=== PATIENT | female | born 1960 | race Caucasian/White ===

== ENCOUNTER → 2021-02-20 13:13 | Outpatient (BNVA) | payer MEDICARE, SELFPAY | PROVIDERS: PCP Internal Medicine; Visit Provider Internal Medicine | DX: M51.36 Other intervertebral disc degeneration, lumbar region (principal); M50.30 Other cervical disc degeneration, unspecified cervical region | CPT/HCPCS: 99202 ==

== ENCOUNTER 2021-03-02 10:21 | Outpatient (REF) | payer MEDICARE, SELFPAY ==
--- NOTE | ~2021-03-02 | MR_ITS ---
MR CERVICAL SPINE AND LUMBAR SPINE WITHOUT CONTRAST CLINICAL INFORMATION: Cervical hardware. Lumbar intervertebral disc degeneration. COMPARISON: Cervical spine MRI 02/16/2016 and lumbar spine MRI 12/24/2013. TECHNIQUE: Multiplanar multisequence MR imaging of the cervical spine obtained without IV contrast. FINDINGS: CERVICAL SPINE MRI: Straightening of the cervical lordosis. ACDF changes at the C5-C7 levels. Vertebral body heights are maintained. There is mild to moderate disc volume loss at C3-C4. Remaining on surgical disc volumes are preserved. There is no bone marrow edema. There are no acute fractures. Probable intraosseous hemangioma within the partially imaged left C5 pedicle unchanged. Cervical arterial flow voids are maintained. There are no significant extraspinal soft tissue findings. There is no cord signal abnormality. Chronic microangiopathy within the central bianca. C2-C3: Disc contour is normal. Left facet arthropathy. No central canal stenosis and no foraminal stenosis. C3-C4: Disc osteophyte mildly narrows the central canal. Advanced uncovertebral joint hypertrophy and hypertrophic facet arthropathy result in severe right and mild to moderate left foraminal stenosis that is progressed. C4-C5: Disc osteophyte mildly narrows the central canal. Advanced uncovertebral joint hypertrophy and hypertrophic facet arthropathy result in worsening severe right-sided foraminal stenosis. C5-C6: ACDF changes. Osteophytic ridging results in moderate to severe bilateral foraminal stenosis. No central canal stenosis. C6-C7: ACDF changes. Osteophytic ridging results in [id number]-[id number] left foraminal stenosis. No central canal and no right foraminal stenosis. C7-T1: Disc contour is normal. Advanced right-sided facet arthropathy resulting in [id number] right-sided foraminal stenosis. LUMBAR SPINE MRI: There are 5 nonrib-bearing lumbar-type vertebral bodies. Straightening of the lumbar lordosis. Vertebral body heights are maintained. There is moderate disc volume loss at L2-L3, L4-L5, and L5-S1. Disc desiccation at all lumbar levels. Modic type I endplate signal changes at L1-L2 and L2-L3. There is no additional bone marrow edema. There are no acute fractures. Conus terminates at the L1 level. Multilevel endplate osteophytes. Partially imaged cyst within the liver. L1-L2: Diffuse annular disc bulge and mild bilateral facet arthropathy. No central canal stenosis and no significant foraminal stenosis. L2-L3: There is a diffuse annular disc bulge is in part disc osteophyte and there is mild bilateral facet arthropathy. There is no central canal stenosis. A left lateral disc osteophyte protrusion and facet arthropathy results in moderate left-sided foraminal stenosis and mass effect on the exiting left L2 nerve root that has progressed. L3-L4: Diffuse annular disc bulge and severe bilateral facet arthropathy and ligamentum flavum thickening. Findings in concert result in worsening moderate central canal stenosis and worsening bilateral subarticular zone stenosis with compression of the traversing L4 nerve roots bilaterally. Mild bilateral foraminal encroachment. L4-L5: Right hemilaminectomy and microdiscectomy changes. Diffuse disc osteophyte complex and moderate bilateral facet arthropathy. There is no central canal stenosis. Right lateral disc osteophyte and facet arthropathy result in similar moderate right-sided foraminal stenosis with mild mass effect on the exiting right L4 nerve root. L5-S1: There is a disc osteophyte complex eccentric to the left side that results in posterior deflection of the traversing left S1 nerve root in the left subarticular zone. Disc osteophyte and facet arthropathy results in similar severe left and moderate right foraminal stenosis with mass effect on the exiting left greater than right L5 nerve roots. Findings are unchanged. MR/MR cervical spine wo con IMPRESSION: - There are postoperative changes following ACDF at the C5-C7 levels. Progressive spondylitic changes resulting in worsening severe right foraminal stenosis at the C3-C4 and C4-C5 levels. There is also moderate to severe bilateral C5-C6 foraminal stenosis. No severe central canal stenosis within the cervical spine. - At L2-L3, a left lateral disc osteophyte protrusion has progressed resulting in worsening moderate left foraminal stenosis and mass effect on the exiting left nerve root. There are Modic type I endplate signal changes at this level. - At L3-L4, progressive spondylitic changes result in worsening moderate central canal stenosis and worsening bilateral subarticular zone stenosis with compression of the traversing L4 nerve roots bilaterally. Mild bilateral foraminal encroachment. - At L4-L5, there are chronic right hemilaminectomy and microdiscectomy changes. Spondylitic changes at L4-L5 result in similar moderate right-sided foraminal stenosis with mild mass effect on the exiting right L4 nerve root. - At L5-S1, similar spondylitic changes result in left subarticular zone stenosis with posterior deflection of the traversing left S1 nerve root as well as similar severe left and moderate right foraminal stenosis with mass effect on the exiting left greater than right L5 nerve roots. Findings are unchanged.
== END 2021-03-02 10:22 | disposition home or self-care (01) ==
LOC: HO.MRI 10:21
PROVIDERS: Visit Provider Internal Medicine
DX: M51.36 Other intervertebral disc degeneration, lumbar region (principal); M50.30 Other cervical disc degeneration, unspecified cervical region
CPT/HCPCS: 72141; 72148

== ENCOUNTER → 2021-03-13 12:49 | Outpatient (BNVA) | payer MEDICARE, SELFPAY | PROVIDERS: PCP Internal Medicine; Visit Provider Internal Medicine | DX: M50.30 Other cervical disc degeneration, unspecified cervical region (principal); M47.817 Spondylosis without myelopathy or radiculopathy, lumbosacral region; M96.1 Postlaminectomy syndrome, not elsewhere classified; M48.061 Spinal stenosis, lumbar region without neurogenic claudication; J44.9 Chronic obstructive pulmonary disease, unspecified; F41.8 Other specified anxiety disorders; F17.210 Nicotine dependence, cigarettes, uncomplicated; Z88.6 Allergy status to analgesic agent; Z88.8 Allergy status to other drugs, medicaments and biological substances | CPT/HCPCS: 99212 ==

== ENCOUNTER 2021-03-22 05:48 | Outpatient (REF) | payer MEDICARE, SELFPAY ==
--- NOTE | ~2021-03-22 | FL_ITS ---
EXAMINATION: XR FLUOROSCOPY WITH IMAGES CLINICAL INFORMATION: Postlaminectomy syndrome. COMPARISON: None. TECHNIQUE: Fluoroscopy performed by Diana Mccracken. Fluoroscopy time: 0.4 minutes DAP: 3.02 Gycm2 Images: 3 FINDINGS: There are 2 right-sided needles positioned on the right and 2 needles on the left adjacent to the L4 and L5 pedicles with contrast opacifying the adjacent soft tissues. FL/FL guidance in treatment room IMPRESSION: 2 needles positioned adjacent to L4 and L5 pedicles with contrast opacifying the adjacent soft tissues.
== END 2021-03-22 05:49 | disposition home or self-care (01) ==
LOC: HO.RADIR 05:48
PROVIDERS: Visit Provider Internal Medicine
DX: M47.817 Spondylosis without myelopathy or radiculopathy, lumbosacral region (principal); M96.1 Postlaminectomy syndrome, not elsewhere classified
CPT/HCPCS: 64493; 64494; J1040; Q9967

== ENCOUNTER → 2021-03-31 10:41 | Outpatient (BNVA) | payer MEDICARE, SELFPAY | PROVIDERS: PCP Internal Medicine; Visit Provider Internal Medicine | DX: M48.061 Spinal stenosis, lumbar region without neurogenic claudication (principal); M47.817 Spondylosis without myelopathy or radiculopathy, lumbosacral region; M96.1 Postlaminectomy syndrome, not elsewhere classified | CPT/HCPCS: 99212 ==

== ENCOUNTER 2021-04-12 06:10 | Outpatient (REF) | payer MEDICARE, SELFPAY | END 2021-04-12 06:11 | disposition home or self-care (01) | LOC: HO.RADIR 06:10 | PROVIDERS: Visit Provider Internal Medicine | DX: Z13.89 Encounter for screening for other disorder (principal) ==

== ENCOUNTER → 2021-04-21 10:40 | Outpatient (BNVA) | payer MEDICARE, SELFPAY | PROVIDERS: PCP Internal Medicine; Visit Provider Internal Medicine ==

== ENCOUNTER 2021-06-28 05:47 | Outpatient (REF) | payer MEDICARE, SELFPAY ==
--- NOTE | ~2021-06-28 | FL_ITS ---
EXAMINATION: XR FLUOROSCOPY WITH IMAGES CLINICAL INFORMATION: Spinal stenosis lumbar region COMPARISON: March 22, 2021 TECHNIQUE: Fluoroscopy performed by Dr. lazarus Marie Fluoroscopy time: 0.4 minutes DAP: 0.769 Gycm2 Images: 4 FINDINGS: 4 C-arm images from the operating room performed. Vardaman are seen with contrast adjacent to the L4, L5, and bilateral S1 pedicles. FL/FL guidance in treatment room IMPRESSION: Spine injections as described.
== END 2021-06-28 05:48 | disposition home or self-care (01) ==
LOC: HO.RADIR 05:47
PROVIDERS: Visit Provider Internal Medicine
DX: M47.817 Spondylosis without myelopathy or radiculopathy, lumbosacral region (principal); M48.061 Spinal stenosis, lumbar region without neurogenic claudication; M51.36 Other intervertebral disc degeneration, lumbar region; M96.1 Postlaminectomy syndrome, not elsewhere classified; F41.8 Other specified anxiety disorders; Z79.899 Other long term (current) drug therapy
CPT/HCPCS: 64493; 64494; Q9967

== ENCOUNTER → 2021-06-30 09:03 | Outpatient (BNVA) | payer MEDICARE, SELFPAY | PROVIDERS: PCP Internal Medicine; Visit Provider Internal Medicine | DX: M96.1 Postlaminectomy syndrome, not elsewhere classified (principal); M47.817 Spondylosis without myelopathy or radiculopathy, lumbosacral region | CPT/HCPCS: Q3014 ==

== ENCOUNTER 2021-08-09 05:58 | Outpatient (REF) | payer MEDICARE, SELFPAY ==
--- NOTE | ~2021-08-09 | FL_ITS ---
EXAMINATION: XR FLUOROSCOPY WITH IMAGES CLINICAL INFORMATION: M48.061 - Spinal stenosis, lumbar region COMPARISON: MR lumbar spine 03/02/2021 TECHNIQUE: Fluoroscopy performed by Dr. Sumanth Craig. Fluoroscopy time: 0.5 minutes DAP: 2.92 Gycm2 Images: 3 FINDINGS: There are spinal needles/electrodes overlying the outer left L3, L4, and L5 neural foramen. There are variable degenerative changes spine with disc narrowing and vertebral spurring. FL/FL guidance in treatment room IMPRESSION: Fluoroscopy for pain management procedures.
== END 2021-08-09 05:59 | disposition home or self-care (01) ==
LOC: HO.RADIR 05:58
PROVIDERS: Visit Provider Internal Medicine
DX: M47.817 Spondylosis without myelopathy or radiculopathy, lumbosacral region (principal); M48.061 Spinal stenosis, lumbar region without neurogenic claudication; M96.1 Postlaminectomy syndrome, not elsewhere classified
CPT/HCPCS: 64635; 64636; Q9967

== ENCOUNTER 2021-08-23 06:06 | Outpatient (REF) | payer MEDICARE, SELFPAY ==
--- NOTE | ~2021-08-23 | FL_ITS ---
EXAMINATION: XR FLUOROSCOPY WITH IMAGES CLINICAL INFORMATION: Spinal stenosis. COMPARISON: None. TECHNIQUE: Fluoroscopy performed by Dr. Zee Marie Fluoroscopy time: 0.6 minutes DAP: 3.08 Gy-cm2 Images: 4 FINDINGS: Needle placements appear to be just lateral to the superior aspects left L4, L5 and S1 vertebral bodies. No contrast is seen injected. FL/FL guidance in treatment room IMPRESSION: Fluoroscopy and spot films provided for pain management procedure by Dr. Zee Marie. Please see her procedure report for full details.
== END 2021-08-23 06:07 | disposition home or self-care (01) ==
LOC: HO.RADIR 06:06
PROVIDERS: Visit Provider Internal Medicine
DX: M47.817 Spondylosis without myelopathy or radiculopathy, lumbosacral region (principal); M48.061 Spinal stenosis, lumbar region without neurogenic claudication; M51.36 Other intervertebral disc degeneration, lumbar region
CPT/HCPCS: 64635; 64636

== ENCOUNTER → 2021-09-22 09:43 | Outpatient (BNVA) | payer MEDICARE, SELFPAY | PROVIDERS: PCP Internal Medicine; Visit Provider Internal Medicine | DX: M53.3 Sacrococcygeal disorders, not elsewhere classified (principal) | CPT/HCPCS: 99212 ==

== ENCOUNTER 2021-11-15 06:01 | Outpatient (REF) | payer MEDICARE, SELFPAY ==
--- NOTE | ~2021-11-15 | FL_ITS ---
EXAMINATION: XR FLUOROSCOPY WITH IMAGES CLINICAL INFORMATION: M53.3 - Sacrococcygeal disorders, not elsewhere classified COMPARISON: MR lumbar spine 03/02/2021 TECHNIQUE: Fluoroscopy performed by Dr. Sumanth Craig. Fluoroscopy time: 0.6 minutes DAP: 0.995 Gycm2 Images: 4 FINDINGS: There is a spinal needle overlying the mid to lower left SI joint and a spinal needle overlying the mid to lower right SI joint. FL/FL guidance in treatment room IMPRESSION: Fluoroscopy for pain management procedure.
== END 2021-11-15 06:02 | disposition home or self-care (01) ==
LOC: HO.RADIR 06:01
PROVIDERS: Visit Provider Internal Medicine
DX: M53.3 Sacrococcygeal disorders, not elsewhere classified (principal)
CPT/HCPCS: 27096; J1040; J2795

== ENCOUNTER → 2021-12-15 09:37 | Outpatient (BNVA) | payer MEDICARE, SELFPAY | PROVIDERS: PCP Internal Medicine; Visit Provider Internal Medicine | DX: M53.3 Sacrococcygeal disorders, not elsewhere classified (principal); M47.817 Spondylosis without myelopathy or radiculopathy, lumbosacral region | CPT/HCPCS: 99212 ==

== ENCOUNTER 2022-08-09 14:38 | Outpatient (AMB) | payer MEDICARE, SELFPAY ==
--- NOTE | 2022-08-09 14:46 | A.OFFPC_ITS ---
Vital Signs 08/09/22 14:50 Height 5 ft 5 in Weight 132 lb BMI 21.9 BP 102/74 Blood Pressure Location Rt brachial Position Sitting Pulse 72 Pulse Source Pulse Oximeter Pulse Oximetry (%) 97 Oxygen Delivery Method Room Air Intake Visit Reasons: REBOOK FROM 07/31/2022 Intake Note: Pt is here today to discuss whining off the paroxetine she was on Allergies No Known Allergies (No Known Allergies*) Allergy (Verified 11/11/24 14:10) Medication List - Last Reviewed 08/09/22 by Letty Love CMA acetaminophen 1,000 mg PO Q6H PRN albuterol sulfate 90 mcg/actuation (ProAir HFA) 2 puffs inhalation Q6H PRN paroxetine HCl 20 mg PO DAILY Tobacco use date assessed: 08/09/22 [facility] Medical History Heartburn Sacroiliac joint pain Postherpetic neuralgia Hx of herpes zoster Spinal stenosis of lumbar region Post laminectomy syndrome Lumbar and sacral spondyloarthritis Depression with anxiety Encounter for screening for malignant neoplasm of lung Degenerative disc disease, cervical Degenerative disc disease, lumbar Smoker unmotivated to quit COPD (chronic obstructive pulmonary disease) Surgical History Hx of cervical discectomy Hx of lumbar discectomy Social History Housing: House Patient Tobacco Use Status: Current everyday Tobacco user Cigarette Packs Per Day: 0 Cigarettes Per Day: 6 e-Cigarette/Vaping Use: Never Used Current occupational status: unemployed Cognitive needs: No Hearing needs: No Vision needs: Yes Questionnaire PHQ-9 Over the last 2 weeks, how often have you been bothered by any of the following problems? 05027 - PHQ-9 Billing: Patient declined-do not bill Source: Developed by Drs. Jorge Nevarez, Teresita Greenberg, Nirav Roth and colleagues, with an educational felicia from [employer] Thrive Questionnaire Declines Thrive assessment: Yes Date Thrive assessed: 08/09/22 AUDIT C Alcohol Use Questionnaire (AUDIT-C) 1. How often do you have a drink containing alcohol?: Monthly or less 2. How many drinks containing alcohol do you have on a typical day when you are drinking?: 1 or 2 3. How often do you have six or more drinks on one occasion?: Never Total Score: 1 MARTHA-7 AMB Questionnaire MARTHA-7 Date MARTHA - 7 assessed: 08/09/22 Source: Developed by Drs. Jorge Nevarez, Teresita Greenberg, Nirav Roth and colleagues, with an educational felicia from [employer] MARTHA-7 Assessment Billing MARTHA-7 Assessment Tool: pt declined-do not bill Physical exam (Primary Care) Vital Signs: Last Vital Signs Pulse 72 08/09/22 14:50 BP 102/74 08/09/22 14:50 Pulse Ox 97 08/09/22 14:50 Oxygen Delivery Method Room Air 08/09/22 14:50 BMI result Body Mass Index 21.9 Tobacco/Smoking Status: Tobacco use Status Tobacco use date assessed 08/09/22 08/09/22 14:56 Patient Tobacco Use Status Current everyday Tobacco 08/09/22 14:47 e-Cigarette/Vaping Use Never Used 08/09/22 14:47 Thrive Assessment: Date of Thrive Assessment Date Thrive assessed 08/09/22 08/09/22 14:56 Coding Level of Care Code Admin Sign Off/No Billing Diagnoses Depression with anxiety F41.8
[2022-08-09 14:50] VITALS: BP 102/74; PULSE 72; O2SAT 97; BMI 21.9
== END 2022-08-09 16:03 | disposition home or self-care (01) ==
LOC: HO.HMGC 14:38
PROVIDERS: PCP Internal Medicine; Visit Provider Internal Medicine
DX: F41.8 Other specified anxiety disorders (principal)
CPT/HCPCS: 99499

== ENCOUNTER 2024-05-08 08:10 | Outpatient (AMB) | payer MEDICARE, SELFPAY ==
--- NOTE | 2024-05-08 08:06 | A.OFFPC_ITS ---
Intake Visit Reasons: need refills paroxitine/[id number] Allergies No Known Allergies [No Known Allergies*] Allergy (Verified 05/08/24 08:42) Medication List - Last Reconciled 05/08/24 by Kami Ahn MD ibuprofen 600 mg PO Q8H PRN paroxetine HCl 30 mg PO DAILY Tobacco use date assessed: 05/08/24 Fall risk assessment: No Falls in past year Last assessed Fall Risk: 05/08/24 Dental Screening Dental Screen Date: 05/08/24 Did you have a dental visit in the last 12 months?: Yes Did you have a dental problem in the last 6 months where you did not have access to dental care?: No Was dental information given to patient?: Patient has dentist HPI need refills paroxitine/[id number] HPI Details 64-year-old lady with depression and anx iety, here today for follow-up. She has been taking paroxetine 30 mg once a day, needs a refill. Patient however states that she has been having more frequent anxiety attacks despite taking paroxetine. Does not want to see a therapist. She has COPD, continues to smoke however with no desire to quit at present time. Patient states that she is not on any medications at present time for her COPD, ran out of her medications. Complains of recurrent productive cough and shortness of breath on moderate exertion. [facility] Medical History Heartburn Sacroiliac joint pain Postherpetic neuralgia Hx of herpes zoster Spinal stenosis of lumbar region Post laminectomy syndrome Lumbar and sacral spondyloarthritis Depression with anxiety Encounter for screening for malignant neoplasm of lung Degenerative disc disease, cervical Degenerative disc disease, lumbar Smoker unmotivated to quit COPD (chronic obstructive pulmonary disease) Surgical History Hx of cervical discectomy Hx of lumbar discectomy Social History Housing: House Patient Tobacco Use Status: Current everyday Tobacco user Cigarette Packs Per Day: 0 Cigarettes Per Day: 6 e-Cigarette/Vaping Use: Never Used Current occupational status: unemployed Cognitive needs: No Hearing needs: No Vision needs: Yes Questionnaire PHQ-9 Over the last 2 weeks, how often have you been bothered by any of the following problems? 1. Little interest or pleasure in doing things: several days 2. Feeling down, depressed, or hopeless: several days 3. Trouble falling or staying asleep, or sleeping too much: several days 4. Feeling tired or having little energy: several days 5. Poor appetite or overeating: several days 6. Feeling bad about yourself - or that you are a failure or have let yourself or your family down: several days 7. Trouble concentrating on things, such as reading the newspaper or watching television: not at all 8. Moving or speaking so slowly that other people could have noticed. Or the opposite - being so fidgety or restless that you have been moving around a lot more than usual: not at all 9. Thoughts that you would be better off or of hurting yourself in some way: not at all Total score: 6 Depression Screening Interpretation: Positive (Started on buspirone 5 mg 1 tablet 3 times a day and continued on paroxetine) Depression Screening Follow- up: Existing condition, In treatment and New Medication prescribed Depression Screening Done: Yes Source: Developed by Drs. Jorge Nevarez, Teresita Greenberg, Nirav Roth and colleagues, with an educational felicia from [employer]. Thrive Questionnaire Date Thrive assessed: 05/08/24 I am a: Patient What is your living situation today?: I have a steady place to live Within the past 12 months, did the food you bought not last and you didn't have the money to get more?: Never true Within the past 12 months, did you worry whether your food would run out before you got money to buy more?: Never true Do you have trouble paying for medicines?: No Do you have trouble getting transportation to medical appointments?: No Do you have trouble paying your heating and electricity bill?: No Do you have trouble taking care of your child, family member or friend?: No Do you have trouble with day-to-day activities such as bathing, preparing meals, shopping, managing finances, etc.?: No Are you currently unemployed and looking for a job?: No Are you interested in more education?: No THRIVE Score: 0 AUDIT C Alcohol Use Questionnaire (AUDIT-C) 1. How often do you have a drink containing alcohol?: Monthly or less 2. How many drinks containing alcohol do you have on a typical day when you are drinking?: 1 or 2 3. How often do you have six or more drinks on one occasion?: Never Total Score: 1 MARTHA-7 AMB Questionnaire MARTHA-7 Date MARTHA - 7 assessed: 05/08/24 Feeling nervous, anxious, or on edge: 1 = Several days Not being able to stop or control worryin = Several days Worrying too much about different things: 1 = Several days Trouble relaxin = Several days Being so restless that it is hard to sit still: 0 = Not at all Becoming easily annoyed or irritable: 0 = Not at all Feeling afraid as if something awful might happen: 0 = Not at all Total MARTHA-7 score (0-4 normal; 5-9 mild; 10-14 moderate; 15-21 severe): 4 Source: Developed by Drs. Jorge Nevarez, Teresita Greenberg, Nirav Roth and colleagues, with an educational felicia from [employer]. MARTHA-7 Assessment Billing MARTHA-7 Assessment Tool: MARTHA-7 Assessment 74490 Review of Systems Const Reports as per HPI, Reports body aches, Reports fatigue, Denies headache(s) and Denies weakness ENT Reports no additional complaints and Denies headache(s) Card Denies rapid heart rate, Denies irregular heart rhythm and Denies lightheadedness Resp Reports as per HPI and Reports wheezing GI Reports no additional complaints and Denies heartburn (Controlled with taking pantoprazole) Neuro Denies headache(s) and Denies weakness Psych Reports as per HPI Endo Reports fatigue Aller/Immun Reports wheezing Physical exam (Primary Care) Tobacco/Smoking Status: Tobacco use Status Tobacco use date assessed 05/08/24 05/08/24 08:08 Patient Tobacco Use Status Current everyday Tobacco 05/08/24 08:08 e-Cigarette/Vaping Use Never Used 05/08/24 08:08 PHQ-9: PHQ-9 Score PHQ-9: Total score 3 05/08/24 09:36 Depression Screening Interpretation: Positive (Started on buspirone 5 mg 1 tab let 3 times a day and continued on paroxetine) Depression Screening Follow-up: Existing condition, In treatment and New Medication prescribed Thrive Assessment: Date of Thrive Assessment Date Thrive assessed 05/08/24 05/08/24 08:09 Telehealth Telehealth Telehealth Platform: [employer] Location of provider rendering services: practice address Location of patient: address on file Patient Identification confirmed using: Name, : Yes Telehealth method: video Patient verbally consented to treatment: Yes Patient verbally consented to billing insurance company: Yes Patient informed of any privacy concerns related to visit: Yes Minutes spent on Phone/Video with Pt.: 20 Coding Level of Care Code Tele Est Pt Level 4 (32478) Complex EM visit Add On G2211 Diagnoses Depression with anxiety F41.8 COPD (chronic obstructive pulmonary disease) J44.9 Smoker unmotivated to quit F17.200 Additional Codes MARTHA-7 Assessment Billing - MARTHA-7 Assessment Tool: MARTHA-7 Assessment 02026 ([id number]) Assessment & Plan Assessment & Plan (1) Depression with anxiety: Code(s): F41.8 - Other specified anxiety disorders Category: Medical Plan: Continued on paroxetine 30 mg daily and added buspirone 5 mg to take 1 tablet twice a day. Declines referral for counseling. Will see her back for follow-up in 4 weeks (2) COPD (chronic obstructive pulmonary disease): Code(s): J44.9 - Chronic obstructive pulmonary disease, unspecified Category: Medical Plan: Started on Breztri Aerosphere, 2 inhalations twice a day, gargle mouth after use. Strongly encouraged to quit smoking. Will see her for follow-up again in 4 weeks (3) Smoker unmotivated to quit: Code(s): F17.200 - Nicotine dependence, unspecified, uncomplicated Category: Social Hx Plan: Patient strongly advised to stop smoking, as smoking damages blood vessels, degenerative of joints and spine, damage to lungs and heart., predisposes to developing certain cancers like lung, breast, bladder, colon. Recommended to try decreasing cigarette use by 1-2 cigarettes a day. Advised to monitor what triggers are for smoking so that this can be discussed on the next office visit. We can discuss different options to quit smoking when ready. Medications: New Breztri Aerosphere 160-9-4.8 mcg/actuation (huhhvzcmus-vfzbfzzn-zozxtibogx) 2 inhalations inhalation BID 10.7 grams 1RF NS J44.9 - Chronic obstructive pulmonary disease, unspecified buspirone 5 mg PO BID 90 tabs 0RF Refilled paroxetine HCl 30 mg PO DAILY 90 tabs 1RF
== END 2024-05-08 09:37 | disposition home or self-care (01) ==
LOC: HO.HMCC 08:10
PROVIDERS: PCP Internal Medicine; Visit Provider Internal Medicine
DX: F41.8 Other specified anxiety disorders (principal); J44.9 Chronic obstructive pulmonary disease, unspecified; F17.200 Nicotine dependence, unspecified, uncomplicated

== ENCOUNTER → 2024-05-08 08:10 | Outpatient (BNVA) | payer MEDICARE, SELFPAY | PROVIDERS: PCP Internal Medicine; Visit Provider Internal Medicine | DX: F41.8 Other specified anxiety disorders (principal); J44.9 Chronic obstructive pulmonary disease, unspecified; F17.200 Nicotine dependence, unspecified, uncomplicated; Z71.6 Tobacco abuse counseling | CPT/HCPCS: 96127 ==

== ENCOUNTER 2024-11-11 13:42 | Outpatient (AMB) | payer MEDICARE, SELFPAY ==
--- NOTE | 2024-11-11 13:52 | A.OFFPC_ITS ---
<Statement entered by Kami Ahn MD - 11/21/24 02:13> This note has been administratively?closed. Vital Signs 11/11/24 14:03 Height 5 ft 5 in Weight 130 lb BMI 21.6 BP 146/72 H Blood Pressure Location Lt brachial Position Sitting Respiration 18 Pulse 75 Pulse Source Pulse Oximeter Temp 97.6 F Temp Source Oral Pulse Oximetry (%) 97 Oxygen Delivery Method Room Air Intake Visit Reasons: [facility] f/u abd pain Intake Note: Pt is here today for her [facility] f/u re: abd pain Allergies No Known Allergies [No Known Allergies*] Allergy (Verified 11/11/24 14:10) Tobacco use date assessed: 11/11/24 Fall risk assessment: No Falls in past year Last assessed Fall Risk: 11/11/24 Dental Screening Dental Screen Date: 11/11/24 REPLACED BY [facility] Medical History Heartburn Sacroiliac joint pain Postherpetic neuralgia Hx of herpes zoster Spinal stenosis of lumbar region Post laminectomy syndrome Lumbar and sacral spondyloarthritis Depression with anxiety Encounter for screening for malignant neoplasm of lung Degenerative disc disease, cervical Degenerative disc disease, lumbar Smoker unmotivated to quit COPD (chronic obstructive pulmonary disease) Surgical History Hx of cervical discectomy Hx of lumbar discectomy Social History Housing: House Patient Tobacco Use Status: Current everyday Tobacco user Cigarette Packs Per Day: 0 Cigarettes Per Day: 6 e-Cigarette/Vaping Use: Never Used Current occupational status: unemployed Cognitive needs: No Hearing needs: No Vision needs: Yes Questionnaire Thrive Questionnaire Date Thrive assessed: 05/08/24 MARTHA-7 AMB Questionnaire MARTHA-7 Date MARTHA - 7 assessed: 05/08/24 Source: Developed by Drs. Jorge Nevarez, Teresita Greenberg, Nirav Roth and colleagues, with an educational felicia from [employer]. Physical exam (Primary Care) Vital Signs: Last Vital Signs Temp 97.6 F 11/11/24 14:03 Pulse 75 11/11/24 14:03 Resp 18 11/11/24 14:03 BP 146/72 H 11/11/24 14:03 Pulse Ox 97 11/11/24 14:03 Oxygen Delivery Method Room Air 11/11/24 14:03 BMI result Body Mass Index 21.6 Tobacco/Smoking Status: Tobacco use Status Tobacco use date assessed 11/11/24 11/11/24 13:53 Patient Tobacco Use Status Current everyday Tobacco 11/11/24 13:53 e-Cigarette/Vaping Use Never Used 11/11/24 13:53 Thrive Assessment: Date of Thrive Assessment Date Thrive assessed 05/08/24 11/11/24 13:53 Coding Level of Care Code Est Pt Level 4 (33579) Diagnoses Acute left lower quadrant pain R10.32 Assessment & Plan Assessment & Plan (1) Acute left lower quadrant pain: Code(s): R10.32 - Left lower quadrant pain Plan: Likely acute diverticulitis, CT [facility] done at [facility] showed some thickening of colonic mucosa in the left side of colon. Empirically started on ciprofloxacin 500 mg to take 1 every 12 hours for 10 days, in addition to metronidazole 500 mg to take 1 tablet every 8 hours for 10 days. Advised to eat a bland diet, easy to digest. Plenty of fluids Rx for oxycodone was also sent 5 mg per tablet to take once a day as needed for severe pain. Five tablets with no refill If pain persists or worsens especially if accompanied by any blood in the stool, nausea or vomiting and fever, go to the ER for further evaluation may Medications: New ciprofloxacin HCl 500 mg PO Q12H 20 tabs 0RF metronidazole 500 mg PO Q8H 30 tabs 0RF 10 days oxycodone Partial Fill upon patient request. 5 mg PO BID PRN 5 tabs 0RF pain, severe
[2024-11-11 14:03] VITALS: BP 146/72; PULSE 75; RESP 18; TEMP 36.4; O2SAT 97; BMI 21.6
--- OUTSIDE RECORDS SUMMARY | 2024-11-11 14:18 | XMS_ITS | Clinical Summary ---
Author Organization [facility] Address [address] [place] [address] Phone Care Team Providers Care Patient Accounts Coordinator Name Role Phone Kami Ahn MD Primary Care Provider [phone] Allergies No known active allergies Medications PARoxetine (PAXIL) 30 mg tablet Take 1 tablet (30 mg total) by mouth 1 (one) time each day. 5 Active traMADoL (ULTRAM) 50 mg tabletIndicatio ns:Colitis Take 1 tablet (50 mg total) by mouth every 8 (eight) hours if needed for severe pain. Max Daily Amount: 150 mg 10 tablet 5 Active acetaminophen (TYLENOL) 500 mg tablet Take 2 tablets (1,000 mg total) by mouth every 8 (eight) hours if needed for mild pain or fever - temperature GREATER than 38 C (100.4 F) for up to 3 days. 20 tablet 5 11/04/19 25 Active Problems Problem Noted Date Diagnosed Date Intractable abdominal pain 10/30/2024 Osteoarthritis 07/16/2011 Overview (10/30/2024): Noted in [facility] joints in hands bilat, mild, Sep 2008, saw Dr Dixon, [facility] Depression 07/10/2011 Low back pain 07/10/2011 Encounters Date Type Department Care Team Description 10/30/2024 12:30 PM EDT - 10/31/2024 12:22 PM EDT Hospital Encounter [facility] Emergency [address] [place] [address] Kaylee Yeboah DO Durkin, Louis J, MD Flores, Carlos M, MD Santoyo-Pacheco , Caleb D, MD Left lower quadrant abdominal pain (Primary Dx); Colitis Discharge Disposition: Home or Self Care from Last 3 Months Surgical History Surgery Date Site/Laterality Comments BACK SURGERY PROCEDURE: HISTORICAL BACK SURGERY; COMMENT: lumbar disc herniation, Dr. Quiñones WRIST SURGERY PROCEDURE: HISTORICAL WRIST SURGERY; COMMENT: left wrist last year Medical History Medical History Date Comments Back pain DX:Back pain Family History Medical History Relation Name Comments Alcohol/Drug Father Heart attack Father Hypertension Father Alcohol/Drug Mother Alcohol/Drug Sister 1 Arthritis Sister 2 Relation Name Status Comments Brother Alive Father Alive alcoholic, Mother alcoholic, Sister 1 Sister 2 Sister 3 Alive Sister 4 Alive Sister 5 Social History Tobacco Use Types Packs/Day Years Used Date Smoking Tobacco: Every Day Cigarettes Smokeless Tobacco: Never Tobacco Cessation:Ready to Q uit: No; Counseling Given: Yes Alcohol Use Standard Drinks/Week Comments No 0 (1 standard drink = 0.6 oz pur e alcohol) Comments No Sex and Gender Information Value Date Recorded Sex Assigned at Female 10/30/2024 1:17 PM EDT Legal Sex Female 9:11 PM EST Gender Identity Female 10/30/2024 1:17 PM EDT Sexual Orientation Straight 10/30/2024 1: 17 PM EDT Obstetrics History Last Filed Vital Signs Vital Sign Reading Time Taken Comments Blood Pressure 129/67 10/31/2024 12:07 PM EDT Pulse 56 10/31/2024 12:07 PM EDT Temperature 37.4 ??C (99.4 ??F) 10/31/2024 12:07 PM E DT Respiratory Rate 13 10/31/2024 12:07 PM EDT Oxygen Saturation 95% 10/31/2024 12:07 PM EDT Inhaled Oxygen Concentration - - Weight 56.7 kg (125 lb) 10/30/2024 12:00 PM EDT Height 167.6 cm (5' 6 ) 10/30/2024 12:00 PM EDT Body Mass Index 20.18 10/30/2024 12:00 PM EDT Plan of Treatment Health Maintenance Due Date Last Done Comments Breast Cancer Screening 1960 Pneumococcal Vaccine: 50+ Years (2 of 2 - PCV) 05/29/2020 05/29/2019 Cholesterol Screening (Lipid Panel) 07/19/2023 Colorectal Cancer Screening: Colonoscopy 07/19/2023 Depression Screening 07/19/2023 Falls Risk Assessment 07/19/2023 Hepatitis C Screening 07/19/2023 Medicare Annual Wellness Visit 07/19/2023 Osteoporosis Screening (Bone Density Screening) 07/19/2023 Social Influencers of Health Screening 07/19/2023 Zoster Vaccines (2 of 2) 05/25/2024 03/30/2024 COVID-19 Vaccine ( season) 2024 03/13/2024, 03/15/2022, 05/09/2021, Additional history exists DTaP,Tdap,and Td Vaccines (2 - Td or Tdap) 02/02/2032 02/01/2022 Influenza Vaccine Completed 03/13/2024, , 04/10/2021, Additional history exists RSV Immunization Adult Patients Completed 03/13/2024 HIB Vaccines Aged Out No longer eligi ble based on patient's age to complete this topic HPV Vaccines Aged Out No longer eligi ble based on patient's age to complete this topic Hepatitis A Vaccines Aged Out No long er eligible based on patient's age to complete this topic Hepatitis B Vaccines Aged Out No long er eligible based on patient's age to complete this topic IPV Vaccines Aged Out No longer eligi ble based on patient's age to complete this topic MMR Vaccines Aged Out No longer eligi ble based on patient's age to complete this topic Meningococcal ACWY Vaccine Aged Out N o longer eligible based on patient's age to complete this topic Meningococcal B Vaccine Aged Out No l onger eligible based on patient's age to complete this topic RSV Immunization Patients Under 20 months Aged Out No longer eligible based on patient's age to complete this topic Varicella Vaccines Aged Out No longer eligible based on patient's age to complete this topic Procedures Procedure Name Priority Date/Time Associated Diagnosis Comments CBC WITH AUTO DIFFERENTIAL Routine 10/31/2024 5:19 AM EDT CBC AND DIFFERENTIAL Routine 10/31/2024 5:19 AM EDT MAGNESIUM Routine 10/31/2024 5:19 AM EDT BASIC METABOLIC PANEL Routine 10/31/2024 5:19 AM EDT DRUG ABUSE SCREEN 8A PANEL, URINE Routine 10/31/2024 12:56 AM EDT LACTATE STAT 10/30/2024 4:36 PM EDT US PELVIS NON OB COMPLETE W TRANSVAGINAL STAT 10/30/2024 3:[address] ABDOMEN PELVIS W CONTRAST STAT 10/30/2024 1:50 PM EDT LIU URINE CULTURE TUBE STAT 10/30/2024 12:10 PM EDT URINALYSIS WITH REFLEX MICROSCOPIC AND CULTURE STAT 10/30/2024 12:10 PM EDT URINALYSIS WITH REFLEX MICROSCOPIC AND CULTURE STAT 10/30/2024 12:10 PM EDT CBC WITH AUTO DIFFERENTIAL STAT 10/30/2024 12:06 PM EDT LIPASE STAT 10/30/2024 12:06 PM EDT COMPREHENSIVE METABOLIC PANEL STAT 10/30/2024 12:06 PM EDT CBC AND DIFFERENTIAL STAT 10/30/2024 12:06 PM EDT from Last 3 Months Results * (ABNORMAL) CBC auto differential (10/31/2024 5:19 AM EDT) Only the most recent of2 resultswithin the time period is included. WBC 5.9 4.8 - 10.8 K/mcL LAB HEMETOLOGY METHOD 10/31/2024 6:09 AM EDT [facility] RBC 3.90 3.80 - 4.80 M/mcL LAB HEMETOLOGY METHOD 10/31/2024 6:09 AM EDT [facility] Hemoglobin 12.6 11.5 - 16.0 g/dL LAB HEMETOLOGY METHOD 10/31/2024 6:09 AM [facility] Hematocrit 37.6 35.0 - 47.0 % LAB HEMETOLOGY METHOD 10/31/2024 6:09 AM [facility] MCV 96.7 79.0 - 98.0 FL LAB HEMETOLOGY METHOD 10/31/2024 6:09 AM [facility] MCH 32.4(H) 27.0 - 32.0 pcg LAB HEMETOLOGY METHOD 10/31/2024 6:09 AM [facility] MCHC 33.5 32.0 - 37.0 g/dL LAB HEMETOLOGY METHOD 10/31/2024 6:09 AM [facility] RDW 14.3 11.0 - 15.0 % LAB HEMETOLOGY METHOD 10/31/2024 6:09 AM [facility] Platelets 161 130 - 400 K/mcL LAB HEMETOLOGY METHOD 10/31/2024 6:09 AM [facility] MPV 10.4 7.0 - 11.0 FL LAB HEMETOLOGY METHOD 10/31/2024 6:09 AM [facility] NRBC 0.0 <1.0 % LAB HEMETOLOGY METHOD 10/31/2024 6:09 AM [facility] NRBC Absolute 0.00 <0.10 K/mcL LAB HEMETOLOGY METHOD 10/31/2024 6:09 AM [facility] Neutrophils Relative 49.8 % LAB HEMETOLOGY METHOD 10/31/2024 6:09 AM [facility] Lymphocytes Relative 38.0 % LAB HEMETOLOGY METHOD 10/31/2024 6:09 AM [facility] Monocytes Relative 7.4 % LAB HEMETOLOGY METHOD 10/31/2024 6:09 AM [facility] Eosinophils Relative 3.9 % LAB HEMETOLOGY METHOD 10/31/2024 6:09 AM EDT [facility] Basophils Relative 0.7 % LAB HEMETOLOGY METHOD [facility] Immature Granulocytes Relative 0.2 % LAB HEMETOLOGY METHOD 10/31/2024 6:09 AM EDT [facility] Neutrophils Absolute 2.95 1.50 - 7.00 K/mcL LAB HEMETOLOGY METHOD 10/31/2024 6:09 AM EDT [facility] Lymphocytes Absolute 2.25 1.00 - 5.00 K/mcL LAB HEMETOLOGY METHOD 10/31/2024 6:09 AM EDT [facility] Monocytes Absolute 0.44 0.20 - 1.00 K/mcL LAB HEMETOLOGY METHOD 10/31/2024 6:09 AM EDT [facility] Eosinophils Absolute 0.23 0.00 - 0.50 K/mcL LAB HEMETOLOGY METHOD 10/31/2024 6:09 AM EDT [facility] Basophils Absolute 0.04 0.00 - 0.20 K/mcL LAB HEMETOLOGY METHOD 10/31/2024 6:09 AM EDT [facility] Immature Granulocytes Absolute 0.01 0.00 - 0.03 K/mcL LAB HEMETOLOGY METHOD 10/31/2024 6:09 AM EDT [facility] Blood Venous blood specimen / Unknown Venipuncture / Unknown 10/31/2024 5:19 AM EDT 10/31/2024 5:43 AM EDT Paramjit Pina MD LAB BLOOD ORDERABLES Final Re sult [facility] [address] [place] [address], * Magnesium (10/31/2024 5:19 AM EDT) Magnesium 1.9 1.9 - 2.6 mg/dL LAB CHEMISTRY METHOD 10/31/2024 6:08 AM [facility] Blood Venous blood specimen / Unknown Venipuncture / Unknown 10/31/2024 5:19 AM EDT 10/31/2024 5:43 AM EDT us Mala Houston MARINE UNDERWRITER LAB BLOOD ORDERABLES Final Resu lt [facility] [address] [place] [address], * Basic metabolic panel (10/31/2024 5:19 AM EDT) Pathologist [facility] Sodium 139 133 - 145 mmol/L LAB CHEMISTRY METHOD 10/31/2024 6:08 AM [facility] Potassium 4.0 3.5 - 5.5 mmol/L LAB CHEMISTRY METHOD 10/31/2024 6:08 AM [facility] Chloride 109 96 - 110 mmol/L LAB CHEMISTRY METHOD 10/31/2024 6:08 AM [facility] CO2 26 21 - 32 mmol/L LAB CHEMISTRY METHOD 10/31/2024 6:08 AM [facility] Anion Gap 4 3 - 11 LAB CHEMISTRY METHOD 10/31/2024 6:08 AM [facility] Glucose 73 70 - 100 mg/dL LAB CHEMISTRY METHOD 10/31/2024 6:08 AM [facility] BUN 16 5 - 25 mg/dL LAB CHEMISTRY METHOD 10/31/2024 6:08 AM [facility] Creatinine 0.57 0.50 - 1.10 mg/dL LAB CHEMISTRY METHOD 10/31/2024 6:08 AM [facility] eGFR 100 >=60 mL/min/1. 73m2 LAB CHEMISTRY METHOD 10/31/2024 6:08 AM EDT [facility] Comment:Calculation based on the Chronic Kidney Disease Epidemiology Collaboration (CKD-EPI) equation refit without adjustment for race. BUN/Creatinine Ratio 28.1 LAB CHEMISTRY METHOD 10/31/2024 6:08 AM EDT [facility] Calcium 9.3 8.5 - 10.5 mg/dL LAB CHEMISTRY METHOD 10/31/2024 6:08 AM EDT [facility] Blood Venous blood specimen / Unknown Venipuncture / Unknown 10/31/2024 5:19 AM EDT 10/31/2024 5:43 AM EDT us Mala Houston MARINE UNDERWRITER LAB BLOOD ORDERABLES Final Resu lt [facility] [address] [place] [address], * (ABNORMAL) Drug abuse screen 8a panel, urine (10/31/2024 12:56 AM EDT) Amphetamine Screen, Ur Negative Negative LAB CHEMISTRY METHOD 2:53 AM [facility] Comment:Certain OTC medicati ons containing ephedrine, phenylephrine, pseudoephedrine and phenylpropanolamine can cause false positive results. Barbiturate Screen, Ur Negative Negative LAB CHEMISTRY METHOD 5 2:53 AM EDT [facility] Benzodiazepine Screen, Ur Negative Negative LAB CHEMISTRY METHOD 2:53 AM EDT [facility] Cocaine Screen, Ur Positive(A ) Negative LAB CHEMISTRY METHOD 5 2:53 AM EDT [facility] Opiate Screen, Ur Positive(A ) Negative LAB CHEMISTRY METHOD 2:53 AM [facility] Cannabinoid (THC) Screen, Ur Negative Negative LAB CHEMISTRY METHOD 5 2:53 AM EDT [facility] Comment:Specimens from patie nts taking pantoprazole sodium (Protonix) have been shown to produce false positive results. Oxycodone Screen, Ur Negative Negative LAB CHEMISTRY METHOD 5 2:53 AM EDT [facility] Fentanyl, Ur Negative Negative LAB CHEMISTRY METHOD 5 2:53 AM EDT [facility] Urine Urine specimen obtained by clean catch procedure / Unknown Non-blood Collection / Unknown 10/31/2024 12:56 AM EDT 10/31/2024 2:12 AM EDT Narrative [facility] - 10/31/2024 2:53 AM EDT Assay cutoffs: Amphetamines ? 1000 ng/mL Barbiturates ?200 ng/mL Benzodiazepines ?? 200 ng/mL Cocaine ? 300 ng/mL Fentanyl ?1 ng/mL Opiates ? 300 ng/mL Oxycodone ? 100 ng/mL THC ?50 ng/mL Semi-quantitative assay for screening purposes only. Unconfirmed screening result should not be used for non-medical purposes. *ALTERNATE METHOD CONFIRMATION DONE UPON REQUEST ONLY* us Mala Houston MARINE UNDERWRITER LAB URINE ORDERABLES Final Resu lt [facility] [address] [place] [address], * Lactate (10/30/2024 4:36 PM EDT) Lactate 0.6 0.4 - 2.0 mmol/L LAB CHEMISTRY METHOD 10/30/2024 5:15 PM EDT [facility] Blood Venous blood specimen / Unknown Venipuncture / Unknown 10/30/2024 4:36 PM EDT 10/30/2024 4:46 PM EDT us Philip Worthington MD LAB BLOOD ORDERABLES Final Res ult [facility] [address] [place] [address], [place] [phone] * US Pelvis Non OB Complete w Transvaginal (10/30/2024 3:46 PM EDT) Anatomical Region Laterality Modality Body, Pelvis Ultrasound 10/30/2024 3:58 PM EDT Impressions 10/30/2024 4:01 PM EDT Limited examination. ??Right ovary was not visualized. ??The left ovary has a normal sonographic appearance but only evaluated transabdominally. -------- FINAL REPORT -------- Dictated By: Maritza Benitez Dictated Date: 10/30/2024 15:58 ET Assigned Physician: Maritza Benitez Reviewed and Electronically Signed By: Maritza Benitez Signed Date: 10/30/2024 16:01 ET Workstation ID: [id number] Transcribed By: Self Edit Transcribed Date: 10/30/2024 15:58 ET Narrative 10/30/2024 4:01 PM EDT ULTRASOUND PELVIS INDICATIONS: ??eval for torsion/cyst please PROCEDURE: ??Real-time liu-scale and color Doppler ultrasound imaging of the pelvis were performed with image documentation. Transabdominal and transvaginal imaging of the pelvis was performed. COMPARISON: ??None. FINDINGS: UTERUS: ?? Measures 5.8 x 1.8 x 3.2 cm. ??Anteverted ??Normal echotexture. ??No focal lesions. ?? No nabothian cysts identified. ENDOMETRIUM: ?? Thickness = ??2 ??mm. Trace fluid in the endometrium RIGHT OVARY: ?? This was unable to be visualized today due to overlying bowel. LEFT OVARY: ?? Measures 2.4 x 2.1 x 2.1 ??cm. normal size but only visualized transabdominally. ??Normal flow detected. Procedure Note Maritza Benitez MD - 10/30/2024 ULTRASOUND PELVIS INDICATIONS: eval for torsion/cyst please PROCEDURE: Real-time liu-scale and color Doppler ultrasound imaging ofthe pelvis were performed with image documentation. Transabdominal andtransvaginal imaging of the pelvis was performed. COMPARISON: None. FINDINGS: UTERUS: Measures 5.8 x 1.8 x 3.2 cm. Anteverted Normal echotexture. No focallesions. No nabothian cysts identified. ENDOMETRIUM: Thickness = 2 mm. Trace fluid in the endometrium RIGHT OVARY: This was unable to be visualized today due to overlying bowel. LEFT OVARY: Measures 2.4 x 2.1 x 2.1 cm. normal size but only visualizedtransabdominally. Normal flow detected. IMPRESSION: Limited examination. Right ovary was not visualized. The left ovary hasa normal sonographic appearance but only evaluated transabdominally. -------- FINAL REPORT -------- Dictated By: Maritza Benitez Dictated Date: 10/30/2024 15:58 ET Assigned Physician: Maritza Benitez Reviewed and Electronically Signed By: Maritza Benitez Signed Date: 10/30/2024 16:01 ET Workstation ID: [id number] Transcribed By: Self Edit Transcribed Date: 10/30/2024 15:58 ET us Ting Sanjay Yeboah DO IMG US PROCEDURES Final R esult * CT Abdomen Pelvis w Contrast (10/30/2024 1:50 PM EDT) Anatomical Region Laterality Modality Body Computed Tomogra phy 10/30/2024 2:05 PM EDT Impressions 10/30/2024 2:10 PM EDT Wall thickening of the colon presumably related to underdistention though infectious/inflammatory colitis is not excluded. ??Otherwise there is no acute findings in the abdomen or pelvis. Incidental findings as above including a low-attenuation left adrenal lesion. -------- FINAL REPORT -------- Dictated By: Maritza Benitez Dictated Date: 10/30/2024 14:05 ET Assigned Physician: Maritza Benitez Reviewed and Electronically Signed By: Maritza Benitez Signed Date: 10/30/2024 14:10 ET Workstation ID: [id number] Transcribed By: Self Edit Transcribed Date: 10/30/2024 14:05 ET Narrative 10/30/2024 2:10 PM EDT PROCEDURE: CT ABDOMEN/PELVIS WITH CONTRAST INDICATION: Diverticulitis suspected TECHNIQUE: CT of the abdomen and pelvis following the intravenous administration of 90cc Isovue 370. Multiplanar reformats. The examination was performed utilizing dose reduction techniques. Total DLP 457 COMPARISON: ??No priors available. FINDINGS: ?? LOWER THORAX: Lung bases are clear. HEPATOBILIARY: Numerous liver cysts. ??No suspicious lesion. ??Focal fatty infiltration near the falciform ligament. No cholelithiasis or biliary duct dilatation. SPLEEN: No focal lesion. PANCREAS: No focal mass or ductal dilatation. ADRENALS: There is a 2.6 cm cystic appearing lesion involving the left adrenal gland. KIDNEYS/URETERS: Nonobstructing calculus in the right kidney. ??No hydronephrosis. PELVIC ORGANS/BLADDER: Circumferential thickening of the bladder is in part related to underdistention. PERITONEUM / RETROPERITONEUM: No ascites or free air. No retroperitoneal lymphadenopathy. VESSELS: Scattered atherosclerotic calcifications throughout the aorta and its major branches. No aneurysm. ??There is prominence of the left gonadal vein with pelvic varicosities which could be seen in the setting of pelvic congestion syndrome. GI TRACT: There is thickening of the distal esophagus presumably related to reflux. ??There is thickening of the colon throughout which is in part related to underdistention. ??No significant diverticuli. ??Acute infectious or inflammatory colitis is not excluded. BONES AND SOFT TISSUES: Degenerative osseous changes without evidence for an acute fracture. Soft tissues are unremarkable. Procedure Note Maritza Benitez MD - 10/30/2024 PROCEDURE: CT ABDOMEN/PELVIS WITH CONTRAST INDICATION: Diverticulitis suspected TECHNIQUE: CT of the abdomen and pelvis following the intravenousadministration of 90cc Isovue 370. Multiplanar reformats. The examinationwas performed utilizing dose reduction techniques. Total DLP 457 COMPARISON: No priors available. FINDINGS: LOWER THORAX: Lung bases are clear. HEPATOBILIARY: Numerous liver cysts. No suspicious lesion. Focal fattyinfiltration near the falciform ligament. No cholelithiasis or biliaryduct dilatation. SPLEEN: No focal lesion. PANCREAS: No focal mass or ductal dilatation. ADRENALS: There is a 2.6 cm cystic appearing lesion involving the leftadrenal gland. KIDNEYS/URETERS: Nonobstructing calculus in the right kidney. Nohydronephrosis. PELVIC ORGANS/BLADDER: Circumferential thickening of the bladder is inpart related to underdistention. PERITONEUM / RETROPERITONEUM: No ascites or free air. No retroperitoneallymphadenopathy. VESSELS: Scattered atherosclerotic calcifications throughout the aorta andits major branches. No aneurysm. There is prominence of the left gonadalvein with pelvic varicosities which could be seen in the setting of pelviccongestion syndrome. GI TRACT: There is thickening of the distal esophagus presumably relatedto reflux. There is thickening of the colon throughout which is in partrelated to underdistention. No significant diverticuli. Acute infectiousor inflammatory colitis is not excluded. BONES AND SOFT TISSUES: Degenerative osseous changes without evidence mine acute fracture. Soft tissues are unremarkable. IMPRESSION: Wall thickening of the colon presumably related to underdistention thoughinfectious/inflammatory colitis is not excluded. Otherwise there is noacute findings in the abdomen or pelvis. Incidental findings as above including a low-attenuation left adrenallesion. -------- FINAL REPORT -------- Dictated By: Maritza Benitez Dictated Date: 10/30/2024 14:05 ET Assigned Physician: Maritza Benitez Reviewed and Electronically Signed By: Maritza Benitez Signed Date: 10/30/2024 14:10 ET Workstation ID: [id number] Transcribed By: Self Edit Transcribed Date: 10/30/2024 14:05 ET us Kaylee Yeboah DO IMG CT PROCEDURES Final R esult * (ABNORMAL) Urinalysis with reflex microscopic and culture (10/30/2024 12:10 PM EDT) Specific [place] Urine 1.025 1.003 - 1.030 LAB URINALYSIS - AUTOMATED METHOD 10/30/2024 12:41 PM EDT [facility] pH, Urine 6.0 5.0 - 8.0 pH LAB URINALYSIS - AUTOMATED METHOD 10/30/2024 12:41 PM EDT [facility] Leukocytes, Urine Negative Negative LAB URINALYSIS - AUTOMATED METHOD 10/30/2024 12:41 PM EDT [facility] Nitrite, Urine Negative Negative LAB URINALYSIS - AUTOMATED METHOD 10/30/2024 12:41 PM [facility] Protein, Urine Trace <=Trace mg/dL LAB URINALYSIS - AUTOMATED METHOD 10/30/2024 12:41 PM [facility] Glucose, Urine Negative Negative mg/dL LAB URINALYSIS - AUTOMATED METHOD 10/30/2024 12:41 PM [facility] Ketones, Urine Trace(A) Negative mg/dL LAB URINALYSIS - AUTOMATED METHOD 10/30/2024 12:41 PM [facility] Urobilinogen, Urine 0.2 0.2 - 1.0 mg/dL LAB URINALYSIS - AUTOMATED METHOD 10/30/2024 12:41 PM [facility] Bilirubin, Urine Small(A) Negative LAB URINALYSIS - AUTOMATED METHOD 10/30/2024 12:41 PM [facility] Blood, Urine Trace(A) Negative LAB URINALYSIS - AUTOMATED METHOD 10/30/2024 12:41 PM [facility] RBC, Urine 15.5(H) 0 - 4 /HPF LAB URINALYSIS - AUTOMATED METHOD 10/30/2024 12:41 PM [facility] WBC, Urine 1.3 0 - 4 /HPF LAB URINALYSIS - AUTOMATED METHOD 10/30/2024 12:41 PM [facility] Squamous Epithelial, Urine 53 0 - 60 /LPF LAB URINALYSIS - AUTOMATED METHOD 10/30/2024 12:41 PM [facility] Bacteria, Urine Negative Negative /HPF LAB URINALYSIS - AUTOMATED METHOD 10/30/2024 12:41 PM [facility] Hyaline Casts, Urine 4.0(H) 0 - 3 /LPF LAB URINALYSIS - AUTOMATED METHOD 10/30/2024 12:41 PM [facility] Urine Urine specimen obtained by clean catch procedure / Unknown Non-blood Collection / Unknown 10/30/2024 12:10 PM EDT 10/30/2024 12:26 PM EDT Kaylee Yeboah LAB URINE ORDERABLES Stefany l Result Performing Organization Address [facility]/ZIP Co de Phone Number [facility] [address] [place] [address], [place] [phone] * Liu urine culture tube (10/30/2024 12:10 PM EDT) Pathologist [facility] Extra Tube Hold for add-ons. 10/30/2024 2:02 PM EDT [facility] Comment:Auto resulted. Urine Urine specimen obtained by clean catch procedure / Unknown Non-blood Collection / Unknown 10/30/2024 12:10 PM EDT 10/30/2024 12:26 PM EDT [facility] LAB URINE ORDERABLES Stefany l Result Performing Organization Address [facility]/ZIP Co de Phone Number [facility] [address] [place] [address], [place] [phone] * Lipase (10/30/2024 12:06 PM EDT) [facility] Lipase 24 13 - 75 unit/L LAB CHEMISTRY METHOD 10/30/2024 12:57 PM EDT [facility] Blood Venous blood specimen / Unknown Venipuncture / Unknown 10/30/2024 12:06 PM EDT 10/30/2024 12:26 PM EDT [facility] LAB BLOOD ORDERABLES Stefany l Result Performing Organization Address City/[facility]/ZIP Co de Phone Number [facility] [address] [place] [address], [place] [phone] * (ABNORMAL) Comprehensive metabolic panel (10/30/2024 12:06 PM EDT) Sodium 138 133 - 145 mmol/L LAB CHEMISTRY METHOD 10/30/2024 12:57 PM [facility] Potassium 4.6 3.5 - 5.5 mmol/L LAB CHEMISTRY METHOD 10/30/2024 12:57 PM [facility] Chloride 107 96 - 110 mmol/L LAB CHEMISTRY METHOD 10/30/2024 12:57 PM [facility] CO2 26 21 - 32 mmol/L LAB CHEMISTRY METHOD 10/30/2024 12:57 PM [facility] Anion Gap 5 3 - 11 LAB CHEMISTRY METHOD 10/30/2024 12:57 PM [facility] Glucose 97 70 - 100 mg/dL LAB CHEMISTRY METHOD 10/30/2024 12:57 PM [facility] BUN 15 5 - 25 mg/dL LAB CHEMISTRY METHOD 10/30/2024 12:57 PM [facility] Creatinine 0.67 0.50 - 1.10 mg/dL LAB CHEMISTRY METHOD 10/30/2024 12:57 PM [facility] eGFR 97 >=60 mL/min/1. 73m2 LAB CHEMISTRY METHOD 10/30/2024 12:57 PM [facility] Comment:Calculation based on the Chronic Kidney Disease Epidemiology Collaboration (CKD-EPI) equation refit without adjustment for race. BUN/Creatinine Ratio 22.4 LAB CHEMISTRY METHOD 10/30/2024 12:57 PM [facility] Calcium 10.6(H) 8.5 - 10.5 mg/dL LAB CHEMISTRY METHOD 10/30/2024 12:57 PM [facility] AST (SGOT) 13 10 - 42 unit/L LAB CHEMISTRY METHOD 10/30/2024 12:57 PM [facility] ALT (SGPT) 23 10 - 60 unit/L LAB CHEMISTRY METHOD 10/30/2024 12:57 PM EDT [facility] Alkaline Phosphatase 83 42 - 121 unit/L LAB CHEMISTRY METHOD 10/30/2024 12:57 PM EDT [facility] Total Protein 7.4 6.0 - 8.0 g/dL LAB CHEMISTRY METHOD 10/30/2024 12:57 PM EDT [facility] Albumin 3.9 3.2 - 5.0 g/dL LAB CHEMISTRY METHOD 10/30/2024 12:57 PM EDT [facility] Total Bilirubin 1.0 0.0 - 1.4 mg/dL LAB CHEMISTRY METHOD 10/30/2024 12:57 PM EDT [facility] Blood Venous blood specimen / Unknown Venipuncture / Unknown 10/30/2024 12:06 PM EDT 10/30/2024 12:26 PM EDT Nikko Sanjay Yeboah DO LAB BLOOD ORDERABLES Stefany l Result [facility] [address] [place] [address], from Last 3 Months Insurance MEDICARE Advance Directives * Full Code - Default (Latest Code Status on File) Date Activated Date Inactivated Comments 10/30/2024 7:12 PM 10/31/2024 3:03 PM This is order is used when code status has not been discussed with the patient, or code status is otherwise unknown/unconfirmed To update the patient's code status, place a code status order. Do not modify or discontinue any currently active code status orders. Care Teams Patient Accounts Coordinator Relationship Specialty Start Date End Date Kami Ahn MD [address] [place] [id number] PCP - General Internal Medicine 10/30/24
== END 2024-11-11 16:12 | disposition home or self-care (01) ==
LOC: HO.HMCC 13:47
PROVIDERS: PCP Internal Medicine; Visit Provider Internal Medicine
DX: R10.32 Left lower quadrant pain (principal)

== ENCOUNTER → 2024-11-11 13:42 | Outpatient (BNVA) | payer MEDICARE, SELFPAY | PROVIDERS: PCP Internal Medicine; Visit Provider Internal Medicine | DX: R10.32 Left lower quadrant pain (principal) | CPT/HCPCS: 99212 ==